=== PATIENT | female | born 1995 | race African-American/Black ===

== ENCOUNTER 2020-10-16 06:27 | Inpatient (IN) | payer MEDICAID, SELFPAY ==
[2020-10-16] VITALS (134 sets, daily range): BP systolic 94–147; BP diastolic 38–131; PULSE 47–149; RESP 16; TEMP 36.2–37.1; O2SAT 60–100; BMI 28.1
--- NOTE | 2020-10-16 07:11 | LDADM ---
This patient, Sonja Howard, was admitted to Labor/Delivery/Recovery 102 on 10/16/20 at 06:27. Plans for labor, pain management and were discussed with patient. Patient/family oriented to hospital policies and general routines including ID bracelet, bed and alarms, visiting hours, pain management, procedures, bathroom and other care routines, personal items, smoking policy, room service/diet and guest tray routines, security routines, and visiting hours. Patient/Family are encouraged to report perceived risks to care and to ask questions if they do not understand what they are told or what they should do. See OBIX for further documentation.
[2020-10-16 07:26] LABS: Basophils Absolute Auto 0.1 K/mm3 (0.0-0.1); Basophils Percent Auto 0.8 % (0.2-1.2); Eosinophils Absolute Auto 0.1 K/mm3 (0-0.3); Eosinophils Percent Auto 1.4 % (0-4.4); Hemoglobin 10.8 g/dL (12.0-15.0); Immature Granulocyte Absolute 0.34 K/mm3 (0.00-0.031); Immature Granulocyte Percent A 4.8 % (0-0.5); Lymphocytes Absolute Auto 2.14 K/mm3 (0.9-3.2); Lymphocytes Percent Auto 30.1 % (18.3-44.2); Mean Corpuscular HGB Conc 32.7 g/dl (32-36); Mean Corpuscular Hemoglobin 30.7 pg (26-34); Mean Corpuscular Volume 93.8 fl (80-100); Mean Platelet Volume 10.7 fl (7.4-10.4); Monocytes Absolute Auto 0.6 K/mm3 (0.1-0.6); Neutrophils Absolute Auto 3.9 K/mm3 (1.3-6.7); Neutrophils Percent Auto 54.9 % (45.5-73.1); Platelet Count Result 198 k/mm3 (150-375); Red Blood Count 3.52 M/mm3 (4.2-5.4); Red Cell Distribution Width 15.1 % (11.5-14.5); White Blood Count 7.1 K/mm3 (4.5-10.0)
--- NOTE | 2020-10-16 07:55 | P.HP_ITS ---
Obstetrics - Admit Note Admission Note: record reviewed. No pertinent additions to the history and/or any subsequent changes in the physical findings that are not consistent with the expected course of the were found. Additions to the history and/or subsequent changes in the physical findings follow. 25yo at 40.1 IOL. Two svds followed by a CS for twins. Transferred to [facility] a few weeks ago wanting to . As she is a good candidate, is past her due date, and cervix is favorable, we planned for IOL today. She is aware of RBA of TOLAC. I personally have reviewed her records. GBS neg. bright light exam neg for herpetic lesions FHT category 1 AROM clear SVE /-3 pitocin and IUPC. DIscussed POC with pt, SO, and RN.
[2020-10-16] MEDS: LACTATED RINGERS 1,000 ML 125 ML IV CONT ×2 (08:06→10:22)
[2020-10-16] MEDS: OXYTOCIN 30 UNITS/NS 500 ML 30 UNITS/500 ML BAG IV CONT (08:06)
--- NOTE | 2020-10-16 10:22 | WPDANESEPP ---
Anes - Eval Pre Procedure Procedure: labor epidural Date/Time: 10/16/20 10:22 Surgeon: deshaun Pre Op Diagnosis: IOL Patient Data Age: 25 Gender: F Height: 1.73 m Weight: 84 kg Last Vital Signs Temp 36.6 C 10/16/20 08:00 Pulse 69 10/16/20 10:16 BP 118/74 10/16/20 10:16 Allergies Allergy/AdvReac Type Severity Reaction Status Date / Time No Known Allergies Allergy Verified 10/05/20 13:43 Home Medications Medication Instructions Recorded Confirmed Type PNV cmb#95-ferrous fumarate-FA 1 tablet PO DAILY 10/05/20 10/16/20 History [] albuterol mcg INHALATION PRN 10/05/20 History valacyclovir [Valtrex] 500 mg PO BID 10/16/20 10/16/20 History Laboratory Tests 10/16/20 10/16/20 10/16/20 06:52 06:52 06:52 WBC 7.1 K/mm3 K/mm3 (4.5-10.0) RBC 3.52 M/mm3 L M/mm3 (4.2-5.4) Hgb 10.8 g/dL L g/dL (12.0-15.0) Hct 33.0 % L % (37.0-47.0) MCV 93.8 fl fl (80-100) MCH 30.7 pg pg (26-34) MCHC 32.7 g/dl g/dl (32-36) RDW 15.1 % H % (11.5-14.5) Plt Count 198 k/mm3 k/mm3 (150-375) MPV 10.7 fl H fl (7.4-10.4) Immature Gran % (Auto) 4.8 % H % (0-0.5) Neut % (Auto) 54.9 % % (45.5-73.1) Lymph % (Auto) 30.1 % % (18.3-44.2) [place] % (Auto) 8.0 % % (2.6-8.5) Eos % (Auto) 1.4 % % (0-4.4) Baso % (Auto) 0.8 % % (0.2-1.2) Lymph # (Auto) 2.14 K/mm3 K/mm3 (0.9-3.2) [place] # (Auto) 0.6 K/mm3 K/mm3 (0.1-0.6) Eos # (Auto) 0.1 K/mm3 K/mm3 (0-0.3) Baso # (Auto) 0.1 K/mm3 K/mm3 (0.0-0.1) Abs Immat Gran (auto) 0.34 K/mm3 H K/mm3 (0.00-0.031) Absolute Neuts (auto) 3.9 K/mm3 K/mm3 (1.3-6.7) Absolute Nucleated RBC 0.0 K/mm3 K/mm3 (0.0-0.012) Nucleated RBC % 0.0 % % (0.0-0.2) RPR Pending Blood Type O Positive Antibody Screen Negative Patient hx anesthesia problems: none Family hx anesthesia problems: none [facility] Family History Family History (Updated 10/05/20 @ 13:44 by Ga Aldridge RN) Other No pertinent family history Social History Social History Substance use: never Gender identity (if verbalized by the patient): Female Spiritual care concerns: No Exam Day of Procedure 10/16/20 10:22
[2020-10-16 11:02] LABS: Rapid Plasma Reagin Non-Reactive (NonReactive)
--- NOTE | 2020-10-16 16:27 | P.PCNOB_ITS ---
OB - Delivery Note Procedure Delivery date: 10/16/20 Procedure: VAVD Induction method: AROM and per pitocin protocol Delivery monitor: external FHT and internal uterine Route of delivery: vacuum extraction () Indication for instrumentation: nonreassuring FHR tracing Laceration Description: None Specimen: Yes (placenta to pathology) Quantitative Blood Loss (ml): 400 Anesthesia type: Epidural Disposition: floor Narrative: With adequate expulsive efforts by the mother, and use of the kiwi vacuum placed at 3+ station, the baby's head was delivered OA. There was a tight nuchal cord. The baby's anterior shoulder was delivered under the pubic symphysis without difficulty. The posterior shoulder and the rest of the baby delivered without difficulty. The was placed on the mothers chest and suctioned and stimulated. The cord was clamped and cut after 30 seconds. Mother and baby both stable. [place] Baby Date of : 10/16/20 Time of : 15:45 Weeks of gestation at delivery: 40 Infant gender: Female Weight (pounds): 7 Weight (ounces): 10 presentation: vertex position: Left Occiput Anterior Placenta delivery description: Manual Removal (Placenta remained intact for 30 min after delivery of the baby. One dose of Ancef 1gm was given, pt was comfortable with epidural, and placenta was manually extracted carefully. It was abnormally adherent at the fundus, but did separate cleanly with careful blunt dissection. ) cord vessel description: 3 Vessels, Nuchal Cord and Delayed Cord Clamping score one minute: 8 score five minutes: 9 Narrative:
[2020-10-16] MEDS: OXYTOCIN 30 UNITS/NS 500 ML 30 UNITS/500 ML BAG 125 UNITS IV CONT (16:29)
[2020-10-16] MEDS: WITCH HAZEL 40 PADS 1 PAD TOPICAL (19:17)
[2020-10-16] MEDS: IBUPROFEN 600 MG TABLET PO (20:01)
[2020-10-17] MEDS: IBUPROFEN 600 MG TABLET PO ×3 (05:10→20:53)
[2020-10-17 05:12] LABS: Hematocrit 25.4 % (37.0-47.0); Hemoglobin 8.6 g/dL (12.0-15.0)
--- NOTE | 2020-10-17 07:00 | PC.NURSE ---
PT introductions made and plan of care discussed per post , pain management, bottle feeding, daily care activities and pending discharge to home. PT verbalized understanding of such care.
--- NOTE | 2020-10-17 07:31 | PM.OBPNVD ---
OB - PN: Subj Subjective Date/time seen: 10/17/20 07:31 Patient comments: no complaints baby status: doing well OB - PN: Obj Data Labs CBC & Chem 7: 10/17/20 05:06 Labs: Laboratory Results - last 24 hr 10/16/20 10/16/20 10/17/20 06:52 06:52 05:06 Hgb 8.6 L Hct 25.4 L RPR Non-reactive Blood Type O Positive Antibody Screen Negative OB - PN A/P Plan day: 1 Plan: routine care and discharge home Time Spent With Patient Time: Total time spent is greater than 50% in coordination of care (as documented) at patient's floor/unit and/or counseling patient: Review of Systems Review of Systems: All systems reviewed & are unremarkable except as noted in HPI and below Exam Const: General: cooperative Orientation/consciousness: patient oriented x3 Psych: Attitude: cooperative Thought content: Yes Normal thought content present Insight: Good insight present (Psych)
--- NOTE | 2020-10-17 07:33 | PM.OBDSVD ---
DS: Admitting Diagnosis Admitting Diagnosis Admitting Diagnosis: EIL at 40 weeks gestation OB - DS: Summary OB Procedures : None OB Procedures Intrapartum: Retained placenta OB Procedures: : None Time Spent with Patient Time attestation: Total time spent providing and/or coordinating discharge services: DS: Data Data Completed and Pending Pending studies at discharge: Pending at discharge 10/16/20 16:16 Surgical [PTH] Routine Labs on day of discharge: Labs from last 24 hours 10/17/20 10/16/20 10/16/20 05:06 06:52 06:52 Hgb 8.6 L Hct 25.4 L RPR Non-reactive Blood Type O Positive Antibody Screen Negative Discharge Plan Discharge Attending physician on discharge: amanda Stallingsarging Clinician: cece Patient Disposition: Home, Self-Care Activity: pelvic rest Diet: regular Patient Instructions: Antibiotic Form Stand Alone Forms: General Discharge Information Follow-up/Referrals: Janessa Melo MD [Physician] - 4 Weeks Discharge Medications: New polysaccharide iron complex 150 mg iron Capsule 150 mg PO BIDWM Qty: 60 RF: 0 Continued PNV cmb#95-ferrous fumarate-FA [] 28 mg iron- 800 mcg Tablet 1 tablet PO DAILY RF: 0 albuterol 90 mcg/actuation Aerosol INHALATION PRN (Reason: Wheezing) RF: 0 Discontinued valacyclovir [Valtrex] 500 mg Tablet 500 mg PO BID RF: 0 Date of admission: 10/16/20 06:27 Primary Care Provider: PHYSICIAN,TECHNICAL ACCOUNT EXECUTIVE Admitting Provider: Janessa Melo Attending physician on admission: Janessa Melo Condition: Stable
--- NOTE | 2020-10-17 07:57 | WPDANLDPN2 ---
Anes-Prog Note L&D Date/Time: 10/17/20 07:57 Comfortable throughout: labor and delivery Neuraxial method: epidural Epidural/Spinal procedure site: clean & non-tender Neuro status: Neuro function grossly intact. Cardiovascular status: normal Respiratory status: normal Airway patency: baseline Mental status: baseline Post-Op hydration status: normal Vital Signs: Last Vital Signs Temp 37.1 C 10/16/20 19:30 Pulse 78 10/16/20 19:30 Resp 16 10/16/20 19:30 BP 122/70 10/16/20 19:30 Pulse Ox 100 10/16/20 19:30 Pain score (VAS): 1 I/O: Intake & Output 10/16/20 10/16/20 10/17/20 15:59 23:59 07:59 Intake Total 1000 1550 Output Total 175 Balance 1000 1375 Post-procedural complaints: none Patient feedback: Patient satisfied with anesthetic care.
[2020-10-17 08:00] VITALS: BP 104/58; PULSE 68; RESP 18; TEMP 36.4; O2SAT 95
[2020-10-17] MEDS: POLYSACCHARIDE IRON COMPLEX 150 MG CAPSULE PO ×2 (08:00→17:56)
[2020-10-17] MEDS: DOCUSATE SODIUM 100 MG CAPSULE PO ×2 (08:00→17:56)
[2020-10-17] MEDS: ACETAMINOPHEN 325 MG TABLET 650 MG PO ×2 (08:00→17:55)
[2020-10-17 20:45] VITALS: BP 104/63; PULSE 74; RESP 15; TEMP 37.1; O2SAT 99
[2020-10-18 07:40] VITALS: BP 104/59; PULSE 72; RESP 18; TEMP 36.9; O2SAT 100
--- NOTE | 2020-10-18 07:50 | PM.OBPNVD ---
OB - PN: Subj Subjective Date/time seen: 10/18/20 07:50 Patient comments: no complaints baby status: doing well OB - PN: Obj Data Labs CBC & Chem 7: 10/17/20 05:06 OB - PN A/P Plan day: 2 Plan: routine care and discharge home (F/U in 4 weeks) Time Spent With Patient Time: Total time spent is greater than 50% in coordination of care (as documented) at patient's floor/unit and/or counseling patient: Time with patient: less than 15 minutes Review of Systems Review of Systems: All systems reviewed & are unremarkable except as noted in HPI and below Exam Narrative: Exam Narrative: Fundus firm and vaginal flow controlled. No lower ext redness, warmth, or edema. Negative homans. Const: General: comfortable Chest: Breast/axilla inspection: normal inspection of the breasts Resp: Effort & Inspection: normal respiratory effort Cardio: Rate: regular rate GI: GI Palp: Yes Soft to palpation Psych: Appearance: grossly normal Affect: normal affect Attitude: cooperative Thought content: Yes Normal thought content present Judgement: Good judgement present (Psych)
--- NOTE | 2020-10-18 07:51 | PM.OBDSVD ---
DS: Admitting Diagnosis Admitting Diagnosis Admitting Diagnosis: Induction of labor OB - DS: Summary OB Procedures : None OB Procedures Intrapartum: Spontaneous Vag Delivery and OB Procedures: : None Time Spent with Patient Time attestation: Total time spent providing and/or coordinating discharge services: DS: Data Data Completed and Pending Pending studies at discharge: Pending at discharge 10/16/20 16:16 Surgical [PTH] Routine Discharge Plan Discharge Attending physician on discharge: amanda Stallingsarging Clinician: cece Patient Disposition: Home, Self-Care Activity: pelvic rest Diet: regular Patient Instructions: Antibiotic Form Stand Alone Forms: General Discharge Information Follow-up/Referrals: Janessa Melo MD [Physician] - 4 Weeks Discharge Medications: New polysaccharide iron complex 150 mg iron Capsule 150 mg PO BIDWM Qty: 60 RF: 0 Continued PNV cmb#95-ferrous fumarate-FA [] 28 mg iron- 800 mcg Tablet 1 tablet PO DAILY RF: 0 albuterol 90 mcg/actuation Aerosol INHALATION PRN (Reason: Wheezing) RF: 0 Discontinued valacyclovir [Valtrex] 500 mg Tablet 500 mg PO BID RF: 0 Date of admission: 10/16/20 06:27 Primary Care Provider: PHYSICIAN,CANTEEN ATTENDANT Admitting Provider: Janessa Melo Attending physician on admission: Janessa Melo Condition: Stable
[2020-10-18] MEDS: IBUPROFEN 600 MG TABLET PO (09:12)
[2020-10-18] MEDS: POLYSACCHARIDE IRON COMPLEX 150 MG CAPSULE PO (09:12)
[2020-10-18] MEDS: DOCUSATE SODIUM 100 MG CAPSULE PO (09:12)
--- NOTE | 2020-10-22 17:28 | PM.OBDSVD ---
DS: Admitting Diagnosis Admitting Diagnosis Admitting Diagnosis: labor OB - DS: Summary OB Procedures : None OB Procedures Intrapartum: Spontaneous Vag Delivery OB Procedures: : None Time Spent with Patient Time attestation: Total time spent providing and/or coordinating discharge services: DS: Data Data Completed and Pending Pending studies at discharge: Pending at discharge 10/16/20 16:16 Surgical [PTH] Routine Discharge Plan Discharge Attending physician on discharge: amanda Consulting providers: Mariana Fang ; Joseline Horn Discharging Clinician: cece Anticipated Discharge Date/Time: 10/18/20 12:00 Patient Disposition: Home, Self-Care Activity: pelvic rest Diet: regular Discharge Instructions: Education: Mom and Baby Guide Given to: Mother Follow-Up: Call your delivering provider's office for an appointment to be seen in: 6 Weeks Mom and baby should come to the [facility] for the follow-up appointment. Appointment Date/Time: October 19, 2020 at 10:00 am What to expect at your follow-up visit: Blood Pressure Check Physical Assessment Call [phone] if you are unable to keep your appointment time. BREAST CARE: * Wear a snug supportive bra. * For engorgement discomfort: Breast Feeding: * Apply warm moist washcloths * Express milk as needed to relieve engorgement * Wear loose clothing Bottle Feeding: * May apply ice packs * For sore nipples: * Identify correct latch-on * Apply warm moist washcloths before and after nursing * Air dry nipples after nursing * May apply Lansinoh cream to nipples EPISIOTOMY/PERINEAL CARE: * Until bleeding stops, use your sarah bottle after urinating * Change your pad frequently throughout the day * You may take sitz baths several times a day (fill your bathtub with warm water and soak for 20 minutes.) Do NOT bathe in the water * No tub baths until seen by your physician - You may shower ACTIVITY: * Rest as much as possible. * Do not exercise or lift anything heavier than your baby (such as laundry or other children.) * Avoid stairs or driving as much as possible. * Do not put anything into the vagina. No douching, tampons, or sexual activity until seen by physician. NOTIFY PHYSICIAN IF YOU HAVE ANY QUESTIONS OR IF ANY OF THE FOLLOWING SYMPTOMS OCCUR: * If your episiotomy or incision becomes red, swollen, or more painful than what you have experienced in the hospital. * If your vaginal bleeding becomes foul smelling. * If your vaginal bleeding becomes more heavy than a period or if your bleeding changes from pink to bright red. However, you may pass an occasional walnut-sized clot once or twice for the first week . * If you experience a sharp, shooting pain in you calves. * If you discover a hard, reddened area on your breast or if you experience flu-like symptoms. DIET: * Eat regular, well-balanced meals. * Drink plenty of fluids daily. If , drink to thirst. Patient Instructions: Antibiotic Form Stand Alone Forms: General Discharge Information Follow-up/Referrals: Janessa Melo MD [Physician] - 4 Weeks Discharge Medications: New polysaccharide iron complex 150 mg iron Capsule 150 mg PO BIDWM Qty: 60 RF: 0 Continued PNV cmb#95-ferrous fumarate-FA [] 28 mg iron- 800 mcg Tablet 1 tablet PO DAILY RF: 0 albuterol 90 mcg/actuation Aerosol INHALATION PRN (Reason: Wheezing) RF: 0 Discontinued valacyclovir [Valtrex] 500 mg Tablet 500 mg PO BID RF: 0 Date of admission: 10/16/20 06:27 Primary Care Provider: PHYSICIAN,LEATHER PRODUCTION WORKER Admitting Provider: Janessa Melo Attending physician on admission: Janessa Melo Condition: Stable
== END 2020-10-18 12:04 | disposition home or self-care (01) | DRG 560 ==
LOC: ANHLDR 06:30 → ANHOB2 20:10
PROVIDERS: Admitting Provider Obstetrics & Gynecology; Visit Provider Obstetrics & Gynecology
DX: O34.211 Maternal care for low transverse scar from previous cesarean delivery (principal); O69.81X0 Labor and delivery complicated by cord around neck, without compression, not applicable or unspecified; Z37.0 Single live birth; Z3A.40 40 weeks gestation of pregnancy; O36.8330 Maternal care for abnormalities of the fetal heart rate or rhythm, third trimester, not applicable or unspecified; O72.0 Third-stage hemorrhage
CPT/HCPCS: 36415; 85014; 85018; 85025; 86592; 86850; 86900; 86901; 88307; A9270; J0690; J2590; J2795; J7120